=== PATIENT | female | born 1975 | race Two or more races ===

== ENCOUNTER 2023-12-29 20:12 | Emergency (ER) | payer OTHER ==
[~2023-12-29] VITALS: Ht 165.1 cm; Wt 113.0 kg
[2023-12-29 21:19] LABS: Basophils # (auto) 0 10 ^3/uL (0-0.2); Basophils % (auto) 0.3 % (0.0-2.0); Eosinophils # (auto) 0.1 10 ^3/uL (0-0.8); Eosinophils % (auto) 0.6 % (0.0-7.0); Hemoglobin 9.8 g/dL (12.2-16.2); Mean Corpuscular Volume 72.3 fL (80.0-100.0); Monocytes # (auto) 0.7 10 ^3/uL (0-1.3); Neutrophils % (auto) 78.8 % (37.0-80.0)
[2023-12-29 21:21] LABS: Hematocrit 30.7 % (36.0-46.0); Lymphocytes # (auto) 1.3 10 ^3/uL (0.4-5.4); Lymphocytes % (auto) 13.3 % (10.0-50.0); Mean Corpuscular Hemoglobin 23.1 pg (28.0-32.0); Mean Corpuscular Hgb Conc. 31.9 g/dL (32.0-36.0); Neutrophils # (auto) 7.9 10 ^3/uL (1.6-8.6); Red Blood Cells 4.25 10^6/uL (4.0-5.20); Red Cell Distribution Width 19.8 % (11.8-14.3)
[2023-12-29 21:26] LABS: Chloride 106 mmol/L (98-107); Potassium 3.9 mmol/L (3.5-5.1); Sodium 137 mmol/L (136-145)
[2023-12-29 21:27] LABS: Anion Gap 10 (5-15); Carbon Dioxide 21 mmol/L (20-30)
[2023-12-29 21:28] LABS: Calcium 9.2 mg/dL (8.5-10.1)
[2023-12-29 21:32] LABS: Glucose 100 mg/dL (74-106)
[2023-12-29 21:33] LABS: BUN/Creatinine Ratio 17.4 (10.0-20.0); Blood Urea Nitrogen 12 mg/dL (9-23)
[2023-12-29 21:51] LABS: Urine Bacteria FEW /hpf (None Seen); Urine Blood Negative /uL (Negative); Urine Clarity Clear (Clear); Urine Color Colorless (Yellow); Urine Protein, UAD Negative (Negative); Urine Specific Gravity 1.007 (1.001-1.035); Urine Urobilinogen Normal (Negative); Urine WBC 2 /hpf (0 - 5)
[2023-12-29] MEDS ORDERED: TRAM50TA2 PO (21:59)
[2023-12-30 01:07] VITALS: BP 115/57; PULSE 78; RESP 18; TEMP 98.3; O2SAT 95
== END 2023-12-30 01:12 | disposition home or self-care (01) ==
LOC: ER 20:12
DX: R10.2 Pelvic and perineal pain (principal); Z98.890 Other specified postprocedural states; Z79.899 Other long term (current) drug therapy
CPT/HCPCS: 36415; 74176; 80048; 81001; 85025